=== PATIENT | female | born 1945 | race Caucasian/White ===

== ENCOUNTER 2024-02-08 00:53 | Emergency (ER) | payer MEDICARE, BC ==
[2024-02-08] MEDS ORDERED: Morphine 4 MG/ML VIAL ONE (01:18)
[2024-02-08] MEDS ORDERED: Ondansetron PF 4 MG/2 ML Vial ONE (01:18)
[2024-02-08] MEDS ORDERED: Lactated Ringer's 1,000 ML ONE (01:18)
[2024-02-08] MEDS ORDERED: Prochlorperazine 10 MG/2 ML VIAL ONE (01:39)
[2024-02-08 01:46] LABS: Hematocrit 48.7 % (36.0-47.0); Hemoglobin 14.5 g/dL (12.0-16.0); Mean Corpuscular HGB CONC 29.8 g/dL (32.0-36.0); Mean Corpuscular Hemoglobin 30.2 pg (27.0-31.0); Mean Corpuscular Volume 101.4 fl (78.0-98.0); Mean Platelet Volume 7.9 fL (7.4-10.4); Platelet Count 333 10x3/uL (130-400); RBC Distribution Width 13.1 % (11.5-14.5); White Blood Cell (WBC) Count 19.3 10x3/uL (4.8-10.8)
[2024-02-08 01:47] LABS: Lymphocytes 10 % (21-51); MDiff Complete? YES; Macrocytosis SLIGHT = 6-15 cells (100X) (0-5/hpf); Monocytes 1 % (0-10); Neutrophil 89 % (42-75); Platelet Adequacy Comment Appears Adequate
[2024-02-08 01:55] LABS: Troponin I Less than 0.010 ng/mL (< 0.028)
[2024-02-08 02:00] LABS: ALT (SGPT) 31 U/L (8-55); AST (SGOT) 27 U/L (5-34); Albumin 4.2 g/dL (3.4-4.8); Alkaline Phosphatase 102 U/L (40-110); Anion Gap 27 mmol/L (10-20); BUN (Urea Nitrogen) 25 mg/dL (9.8-20.1); Bilirubin, Total 0.7 mg/dL (0.2-1.2); Calc. Creatinine Clearance 0 mL/min (70-130); Calcium 9.8 mg/dL (7.8-10.44); Carbon Dioxide 10 mmol/L (23-31); Chloride 107 mmol/L (98-107); Estimated GFR 90; Globulin 2.3 g/dL (2.4-3.5); Glucose 279 mg/dL (83-110); Lipase 8 U/L (8-78); Potassium 3.5 mmol/L (3.5-5.1); Protein, Total 6.5 g/dL (5.8-8.1); Sodium 140 mmol/L (136-145)
[2024-02-08] MEDS ORDERED: Mag-Al Plus 1200/1200/120 MG (30 mL) UDCUP ONE (02:13)
[2024-02-08] MEDS ORDERED: Lidocaine 2% Viscous 100 ML BOTTLE ONE (02:14)
[2024-02-08] MEDS ORDERED: Metoclopramide HCl 10 MG (2 mL) VIAL ONE (02:34)
[2024-02-08] MEDS ORDERED: Lorazepam 2 MG/ML VIAL ONE (03:18)
[2024-02-08 03:42] LABS: Bilirubin Negative (Negative); Blood, Urine Trace (Negative); Glucose, Urine (Dipstick) 500 mg/dL (Negative); Ketone, Urine > or equal to 80 mg/dL (Negative); Leukocyte Negative (Negative); Nitrite Positive (Negative); Protein, Urine (Dipstick) Negative (Neg-Trace); Specific Gravity, Urine 1.015 (1.005-1.030); Urobilinogen 0.2 mg/dL (Less than 2)
[2024-02-08 03:46] LABS: Bacteria/HPF 3+ HPF (None Seen); CAUTI Indications for Culture Pelvic or flank pain; Clarity Cloudy (Clear); RBC/HPF 0-3 HPF (0-3); Squamous Epithelial 0-3 HPF (0-3)
[2024-02-08 03:47] LABS: Urine Culture Reflex Yes Yes
[2024-02-08 04:01] LABS: Anion Gap 26 mmol/L (10-20); BUN (Urea Nitrogen) 19 mg/dL (9.8-20.1); Calc. Creatinine Clearance 0 mL/min (70-130); Calcium 9.6 mg/dL (7.8-10.44); Carbon Dioxide 12 mmol/L (23-31); Chloride 105 mmol/L (98-107); Estimated GFR 91; Glucose 200 mg/dL (83-110); Lipase 10 U/L (8-78); Potassium 3.6 mmol/L (3.5-5.1); Sodium 139 mmol/L (136-145)
[2024-02-08 04:03] LABS: Troponin I Less than 0.010 ng/mL (< 0.028)
[2024-02-08] MEDS ORDERED: cefTRIAXone (ROCEPHIN) 1 GM VIAL ONE (04:24)
[2024-02-08] MEDS ORDERED: Promethazine HCl 25 MG/ML VIAL ONE (05:27)
[2024-02-08 06:33] LABS: Lactic Acid 2.4 mmol/L (0.5-2.2)
[2024-02-08] MEDS ORDERED: metroNIDAZOLE 500 MG (100 mL) BAG ONE (07:00)
[2024-02-08] MEDS ORDERED: Iopamidol 370 76% 100 ML VIAL ONE (09:00)
== END 2024-02-08 09:13 | disposition short-term general hospital (02) ==
LOC: MADERS 00:53
DX: A41.9 Sepsis, unspecified organism (principal); E86.0 Dehydration; R11.2 Nausea with vomiting, unspecified; N39.0 Urinary tract infection, site not specified; E11.9 Type 2 diabetes mellitus without complications; Z79.84 Long term (current) use of oral hypoglycemic drugs; Z79.01 Long term (current) use of anticoagulants
CPT/HCPCS: 36415; 36416; 71045; 74177; 80053; 81001; 83605; 83690; 83735; 84484; 85025; 87040; 87077; 87086; 87186; 93005; 96361; 96365; 96367; 96375; J0696; J0780; J2060; J2270; J2405; J2550; J2765; J7120; Q9967